=== PATIENT | female | born 2000 | race Caucasian/White ===

== ENCOUNTER 2018-02-20 02:40 | Emergency (ER) | payer BC, MEDICAID ==
[~2018-02-20] VITALS: Ht 172.7 cm; Wt 102.5 kg
[2018-02-20 02:52] VITALS: BP 110/67
== END 2018-02-20 03:42 | disposition home or self-care (01) ==
LOC: ER 02:49
DX: R58 Hemorrhage, not elsewhere classified (principal)
CPT/HCPCS: 99283; A4606; A6402; Z7610